=== PATIENT | female | born 1990 | race Two or more races ===

== ENCOUNTER → 2017-10-31 | Emergency (ER) | payer SELFPAY ==
[~2017-10-31] VITALS: Ht 157.5 cm; Wt 68.0 kg
[2017-10-31 14:56] VITALS: BP_SYST 120; BP_SYST 130; BP_DIAS 60; BP_DIAS 80
--- NOTE | 2017-10-31 16:17 | Emergency Room Report ---
History of Present Illness General Chief Complaint: Abdominal Pain Present Illness HPI I did not see patient, patient eloped without being seen Allergies: Coded Allergies: No Known Allergies (Unverified , 10/31/17) Patient History Last Menstrual Period: 08/08/17 Now: Yes - Pt states "three months" and is receiving care Nursing Documentation-[facility] Past Medical History: Deferred Physical Exam Vital Signs Date Time Temp Pulse Resp B/P (MAP) Pulse Ox O2 Delivery O2 Flow Rate FiO2 10/31/17 14:47 98.1 80 18 130/60 100 Room Air Medical Decision Making Diagnostic Impression: Primary Impression: abdominal pain Last Vital Signs Date Time Temp Pulse Resp B/P (MAP) Pulse Ox O2 Delivery O2 Flow Rate FiO2 10/31/17 14:56 78 16 120/80 98 Room Air 10/31/17 14:56 98.1 Disposition: ELOPED Condition: Stable Referrals: NOT CHOSEN JONH/,REFERRING (PCP) Edelmira Dickerson M.D. Oct 31, 2017 16:16
== END | disposition left against medical advice (07) ==
LOC: EDBD 14:53 → EMR 15:00
DX: R10.9 Unspecified abdominal pain (principal); Z53.21 Procedure and treatment not carried out due to patient leaving prior to being seen by health care provider
CPT/HCPCS: 99281